=== PATIENT | male | born 1990 | race Caucasian/White ===

== ENCOUNTER 2016-12-23 19:46 | Emergency (ER) | payer OTHER, SELFPAY ==
[2016-12-23] MEDS ORDERED: Lidocaine Viscous Sol 2% 15 ml UD Cup ONE (20:01)
[2016-12-23] MEDS ORDERED: Dexamethasone 4 mg/ml Vial ONE (20:04)
[2016-12-23] MEDS ORDERED: Clindamycin/D5W 600 mg/50 ml Premix Bag ONE (20:05)
[2016-12-23] MEDS ORDERED: Sodium Chloride 0.9% 0 ML ONE (20:06)
[2016-12-23] MEDS ORDERED: Ketorolac Tromethamine 30 MG/ML VIAL ONE (20:48)
[2016-12-23] MEDS ORDERED: Fentanyl 100 MCG/2 ML VIAL ONE (20:48)
== END 2016-12-23 21:37 | disposition home or self-care (01) ==
LOC: BURERS 19:46
DX: K04.7 Periapical abscess without sinus (principal); F41.9 Anxiety disorder, unspecified; F32.9 Major depressive disorder, single episode, unspecified; F17.210 Nicotine dependence, cigarettes, uncomplicated; Z79.2 Long term (current) use of antibiotics
CPT/HCPCS: 41800; 96365; 96375; J1100; J1885; J3010; J3490; J7050